=== PATIENT | male | born 1970 | race African-American/Black ===

== ENCOUNTER 2016-07-22 10:59 | Outpatient (CLI) | payer MEDICARE, MEDICAID ==
[2016-07-22 12:14] LABS: ALT (SGPT) 17 U/L (0-55); AST (SGOT) 16 U/L (5-34); Albumin 4.2 g/dL (3.5-5.0); Alkaline Phosphatase 84 U/L (40-150); Anion Gap 16 mmol/L (10-20); BUN (Urea Nitrogen) 11 mg/dL (8.9-20.6); Bilirubin, Total 0.4 mg/dL (0.2-1.2); Calc. Creatinine Clearance 0 mL/min (70-130); Calcium 9.5 mg/dL (7.8-10.44); Carbon Dioxide 26 mmol/L (22-29); Cardiac Risk 5.5 (Less than 4.5); Chloride 110 mmol/L (98-107); Cholesterol 231 mg/dL (< 200 Desired); Estimated GFR-MDRD 84; Glucose 92 mg/dL (70-105); HDL Cholesterol 42 mg/dL (>60 Neg Risk); LDL Cholesterol, Calculated 148 mg/dL; Potassium 4.1 mmol/L (3.5-5.1); Protein, Total 7.2 g/dL (6.0-8.3); Sodium 148 mmol/L (136-145); Triglycerides 204 mg/dL (Less than 150)
[2016-07-22 12:51] LABS: #Basophils 0.1 thou/uL (0.0-0.2); #Eosinphils 0.2 thou/uL (0.0-0.7); #Monocytes 0.5 thou/uL (0.11-0.59); #Neutrophils 2.7 thou/uL (1.40-6.50); %Eosinophils 3.7 % (0.0-10.0); %Lymphocytes 27.2 % (21.0-51.0); %Monocytes 10.7 % (0.0-10.0); %Neutrophils 56.4 % (42.0-75.0); Hemoglobin 16.1 g/dL (14.0-18.0); MDiff Complete? YES; Manual Diff?? NO; Mean Corpuscular HGB CONC 33.7 g/dL (32.0-36.0); Mean Corpuscular Hemoglobin 30.9 pg (27.0-31.0); Mean Corpuscular Volume 91.8 fl (80.0-94.0); Mean Platelet Volume 8.6 fL (7.4-10.4); Platelet Count 171 thou/uL (130-400); RBC Distribution Width 11.8 % (11.5-14.5); Red Blood Cell (RBC) Count 5.21 mill/uL (4.70-6.10); White Blood Cell (WBC) Count 4.8 thou/uL (4.8-10.8)
[2016-07-22 18:58] LABS: HBSAg Index 0.24 S/CO (0-0.99); Hep B Core Total Ab Non-Reactive (NonReactive); Hep B Core Total Index 0.08 S/CO (0-0.79); Hep B Surf Ag Non-Reactive S/CO (NonReactive)
[2016-07-22 19:31] LABS: Hep B Surf AB Reactive (NonReactive)
[2016-07-22 19:33] LABS: HBSAB Concentration 309.46 mIU/mL
== END 2016-07-22 11:00 | disposition home or self-care (01) ==
LOC: MADLABBHPM 10:59
PROVIDERS: ATTEND Family Medicine
DX: Z00.00 Encounter for general adult medical examination without abnormal findings (principal)
CPT/HCPCS: 36415; 80053; 80061; 85025; 86704; 86706; 87340

== ENCOUNTER 2020-12-04 11:27 | Outpatient (CLI) | payer MEDICARE, MEDICAID | END 2020-12-04 11:28 | disposition home or self-care (01) | LOC: MADEKG 11:27 | PROVIDERS: ATTEND Family Medicine | DX: I49.9 Cardiac arrhythmia, unspecified (principal) | CPT/HCPCS: 93005; 93010 ==